=== PATIENT | female | born 1975 | race Caucasian/White ===

== ENCOUNTER 2017-09-27 17:01 | Emergency (ER) | payer OTHER ==
--- NOTE | 2017-09-27 18:14 | UC ---
Lower Extremity/Ankle HPI - HPI Summary HPI Summary: 42 YEAR OLD FEMALE PRESENTS WITH COMPLAINS OF LEFT KNEE PAIN POST FALL 3 WEEKS AGO. - History of Current Complaint Stated Complaint: LEFT KNEE INJURY Time Seen by Provider: 09/27/17 18:14 Hx Obtained From: Patient Hx Last Menstrual Period: unknown Onset/Duration: Sudden Onset Severity Initially: Moderate Severity Currently: Moderate Pain Scale Used: 0-10 Numeric - 5 - Allergies/Home Medications Allergies/Adverse Reactions: Allergies Allergy/AdvReac Type Severity Reaction Status Date / Time No Known Allergies Allergy Verified 09/27/17 18:17 PMH/Surg Hx/FS Hx/Imm Hx Previously Healthy: Yes - Surgical History Surgical History: Yes Surgery Procedure, Year, and Place: T&A. knee and wrist surgeries - Family History Known Family History: Positive: None, Other - grandmother with CVA - Social History Alcohol Use: Occasionally Substance Use Type: None Smoking Status (MU): Former Smoker Type: Cigarettes Amount Used/How Often: 1/2 PPD Have You Smoked in the Last Year: Yes When Did the Patient Quit Smoking/Using Tobacco: 6 years ago Household Exposure Type: Cigarettes - Immunization History Most Recent Influenza Vaccination: NOT IN 2014 Review of Systems Constitutional: Negative Skin: Negative Eyes: Negative ENT: Negative Respiratory: Negative Cardiovascular: Negative Gastrointestinal: Negative Genitourinary: Negative Motor: Negative Neurovascular: Negative Musculoskeletal: Other: - LEFT KNEE PAIN Neurological: Negative Psychological: Negative All Other Systems Reviewed And Are Negative: Yes Physical Exam Triage Information Reviewed: Yes Vital Signs Reviewed: Yes Eye Exam: Normal ENT Exam: Normal Dental Exam: Normal Neck exam: Normal Neck: Positive: 1 Respiratory Exam: Normal Cardiovascular Exam: Normal Abdominal Exam: Normal Musculoskeletal: Positive: Other: - LEFT KNEE PAIN/SWELLING LEFT LOWER LEG SWELING Neurological Exam: Normal Psychological Exam: Normal Skin Exam: Normal Lower Extremity Course/Dx - Differential Dx/Diagnosis Provider Diagnoses: LEFT LOWWER LEG CONTUSION Discharge - Discharge Plan Condition: Stable Disposition: HOME Prescriptions: Meloxicam(NF) [Mobic(NF)] 7.5 mg PO BID #30 tab Patient Education Materials: Contusion in Adults (ED) Referrals: Leon Viramontes MD [Medical Doctor] - Fide Mitchell PA [Primary Care Provider] -
[2017-09-27 18:23] VITALS: BP 130/84
--- NOTE | 2017-09-27 19:11 | RAD ---
Indication: LEFT lower leg pain post fall 3.5 weeks ago. Medial lower leg soft tissue hematoma. Comparison: No relevant prior exams available on the [facility] for comparison. Technique: AP and lateral views LEFT lower leg. REPORT AND IMPRESSION: Mild soft tissue edema most prominent over the lateral aspect. Negative for fracture or malalignment.
== END 2017-09-27 19:24 | disposition home or self-care (01) ==
LOC: UCCORT 17:01
DX: S80.02XA Contusion of left knee, initial encounter (principal); Z98.890 Other specified postprocedural states; W19.XXXA Unspecified fall, initial encounter; Y92.9 Unspecified place or not applicable
CPT/HCPCS: 99212; G0463

== ENCOUNTER 2017-11-21 15:57 | Emergency (ER) | payer OTHER ==
[2017-11-21 16:25] VITALS: BP 124/74
--- NOTE | 2017-11-21 16:43 | ED ---
Throat Pain/Nasal Congestion - HPI Summary HPI Summary: 42yr old female with the complaint of bilateral ear pressure, sinus pressure, cough and fever and chills last night with temp last night. Denies NVD. She is a smoker. Denies SOB. No other complaints. - History of Current Complaint Chief Complaint: UCRespiratory Time Seen by Provider: 11/21/17 16:28 - Allergies/Home Medications Allergies/Adverse Reactions: Allergies Allergy/AdvReac Type Severity Reaction Status Date / Time No Known Allergies Allergy Verified 11/21/17 16:25 Home Medications: Home Medications Guaifenesin/Dextromethorphan [Robitussin Cough & Chest 20-400 mg/20Ml] 2 tbsp PO ONCE PRN 11/21/17 [History Confirmed 11/21/17] PMH/Surg Hx/FS Hx/Imm Hx Respiratory History: Reports: Hx Asthma - Surgical History Surgery Procedure, Year, and Place: T&A. knee and wrist surgeries Infectious Disease History: No Infectious Disease History: Denies: Traveled Outside the [place] in Last 30 Days - Family History Known Family History: Positive: None, Other - grandmother with CVA - Social History Alcohol Use: Occasionally Substance Use Type: Reports: None Smoking Status (MU): Heavy Every Day Tobacco Smoker Type: Cigarettes Amount Used/How Often: 1 PPD Length of Time of Smoking/Using Tobacco: since age 17 Have You Smoked in the Last Year: Yes Review of Systems Positive: Fever, Chills Positive: Ear Ache Positive: Cough All Other Systems Reviewed And Are Negative: Yes Physical Exam Triage Information Reviewed: Yes Vital Signs On Initial Exam: Initial Vitals Temp Pulse Resp BP Pulse Ox 98.8 F 96 16 124/74 97 11/21/17 16:20 11/21/17 16:20 11/21/17 16:20 11/21/17 16:20 11/21/17 16:20 Vital Signs Reviewed: Yes Appearance: Positive: Well-Appearing, No Pain Distress Skin: Positive: Warm Head/Face: Positive: Normal Head/Face Inspection Eyes: Positive: EOMI ENT: Positive: Pharynx normal, Nasal congestion, TMs normal Neck: Positive: Nontender Respiratory/Lung Sounds: Positive: Clear to Auscultation, Breath Sounds Present Cardiovascular: Positive: RRR. Negative: Murmur Abdomen Description: Positive: Nontender Musculoskeletal: Positive: Strength/ROM Intact Neurological: Positive: Sensory/Motor Intact, Alert, Oriented to Person Place, Time, CN Intact II-III Psychiatric: Positive: Normal - Janae Coma Scale Best Eye Response: 4 - Spontaneous Best Motor Response: 6 - Obeys Commands Best Verbal Response: 5 - Oriented Coma Scale Total: 15 Diagnostics - Vital Signs Vital Signs Temp Pulse Resp BP Pulse Ox 11/21/17 16:20 98.8 F 96 16 124/74 97 - Laboratory Lab Statement: Any lab studies that have been ordered have been reviewed, and results considered in the medical decision making process. EENT Course/Dx - Course Course Of Treatment: 42 yr old with sinusitis. Rx with augmentin. - Diagnoses Provider Diagnoses: Sinusitis Discharge - Discharge Plan Condition: Good Disposition: HOME Prescriptions: Amoxicillin/Clavulanate TAB* [Augmentin TAB 875*] 875 mg PO BID #20 tab Patient Education Materials: Sinusitis (ED) Referrals: Fide Mitchell PA [Primary Care Provider] - 2 Days
== END 2017-11-21 17:26 | disposition home or self-care (01) ==
LOC: UCCORT 15:57
DX: J32.9 Chronic sinusitis, unspecified (principal); F17.210 Nicotine dependence, cigarettes, uncomplicated
CPT/HCPCS: 87502; 99212; G0463